=== PATIENT | female | born 1950 | race Caucasian/White ===

== ENCOUNTER → 2016-11-10 | Outpatient (CLI) | payer OTHER | LOC: MC.RAD 14:33 | DX: Z12.31 Encounter for screening mammogram for malignant neoplasm of breast (principal) ==

== ENCOUNTER → 2019-12-04 | Outpatient (CLI) | payer MEDICARE, OTHER | LOC: MC.RAD 11:31 | DX: Z12.31 Encounter for screening mammogram for malignant neoplasm of breast (principal) ==

== ENCOUNTER → 2021-02-03 | Outpatient (CLI) | payer MEDICARE, OTHER ==
[~2021-02-03] MED LIST: GLUCOPHAGE1000 MG PO; HYZAAR 25 MG-101 TAB PO; NEURONTIN300 MG/CAP PO; NORCO 325 MG-51 TAB PO; NORVASC 5MG5 MG/TAB PO; OMEGA-3 1000 MG1 CAP PO; ONE-A-DAY ESSE1 EACH PO; PRAVACHOL 40MG40 MG PO; PRILOSEC 20MG20 MG PO; PROFERRIN ES12 MG PO; ZOLOFT 50MG50 MG PO
== END ==
LOC: MC.RAD 09:33
DX: Z12.31 Encounter for screening mammogram for malignant neoplasm of breast (principal)

== ENCOUNTER 2021-04-14 22:07 | Emergency (ER) | payer MEDICARE, OTHER ==
[~2021-04-14] VITALS: Ht 154.9 cm; Wt 90.9 kg
[2021-04-14 22:10] VITALS: TEMP 97.9
[2021-04-14] MEDS ORDERED: PRILOSEC 20MG20 MG PO (22:12)
[2021-04-14] MEDS ORDERED: GLUCOPHAGE1000 MG PO (22:12)
[2021-04-14] MEDS ORDERED: NEURONTIN300 MG/CAP PO (22:13)
[2021-04-14] MEDS ORDERED: PRAVACHOL 40MG40 MG PO (22:13)
[2021-04-14] MEDS ORDERED: ZOLOFT 50MG50 MG PO (22:13)
[2021-04-14] MEDS ORDERED: NORVASC 5MG5 MG/TAB PO (22:13)
[2021-04-14] MEDS ORDERED: HYZAAR 25 MG-101 TAB PO (22:14)
[2021-04-14] MEDS ORDERED: OMEGA-3 1000 MG1 CAP PO (22:14)
[2021-04-14] MEDS ORDERED: PROFERRIN ES12 MG PO (22:14)
[2021-04-14] MEDS ORDERED: ONE-A-DAY ESSE1 EACH PO (22:14)
[2021-04-15] MEDS ORDERED: NORCO 325 MG-51 TAB PO (00:04)
[2021-04-15 00:15] VITALS: BP 162/81; PULSE 84
== END 2021-04-15 00:22 | disposition home or self-care (01) ==
LOC: COL.ER 22:07
DX: S82.142A Displaced bicondylar fracture of left tibia, initial encounter for closed fracture (principal); I10 Essential (primary) hypertension; E78.00 Pure hypercholesterolemia, unspecified; E11.9 Type 2 diabetes mellitus without complications; K21.9 Gastro-esophageal reflux disease without esophagitis; Z79.899 Other long term (current) drug therapy; Z79.84 Long term (current) use of oral hypoglycemic drugs; W54.1XXA Struck by dog, initial encounter; Y93.01 Activity, walking, marching and hiking
CPT/HCPCS: J1885; J3010; L1830; L1846

== ENCOUNTER → 2022-04-14 | Outpatient (CLI) | payer MEDICARE | LOC: MC.RAD 09:09 | DX: Z12.31 Encounter for screening mammogram for malignant neoplasm of breast (principal) ==